=== PATIENT | female | born 1955 | race Caucasian/White ===

== ENCOUNTER → 2017-10-28 | Outpatient (CLI) | payer OTHER ==
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
--- NOTE | 2017-10-28 15:21 | XR ---
EXAMINATION TYPE: XR knee complete RT DATE OF EXAM: 10/28/2017 CLINICAL HISTORY: pain TECHNIQUE: Three views of the right knee are obtained. COMPARISON: None. FINDINGS: There is no acute fracture/dislocation. The tri-compartment joint spaces appear within no rmal limits. Superior patellar spurring. The overlying soft tissue appears unremarkable. IMPRESSION: There is no acute fracture or dislocation.ICD 10 NO FRACTURE, INITIAL EVALUATION
--- NOTE | 2017-10-28 15:21 | XR ---
EXAMINATION TYPE: XR shoulder complete LT DATE OF EXAM: 10/28/2017 CLINICAL HISTORY: pain COMPARISON: NONE TECHNIQUE: Three views of the left shoulder are obtained. FINDINGS: There is no acute fracture/dislocation evident. The acromioclavicular and glenohumeral erin int spaces appear mildly narrowed.. The visualized ribs are intact and unremarkable. IMPRESSION: 1. There is no acute fracture or dislocation. ICD 10 NO FRACTURE, INITIAL EVALUATION
--- NOTE | 2017-10-28 15:22 | XR ---
EXAMINATION TYPE: XR thoracic spine complete DATE OF EXAM: 10/28/2017 CLINICAL HISTORY: pain TECHNIQUE: Frontal, lateral, and swimmer's view of thoracic spine are obtained. COMPARISON: None. FINDINGS: Thoracic spine show satisfactory alignment without evidence of acute fracture or dislocatio n. Vertebral body heights are preserved. Mild degenerative disc space narrowing and spondylosis. V isualized ribs are unremarkable. IMPRESSION: No acute fracture or dislocation is seen in the thoracic spine. ICD 10 NO FRACTURE, INIT IAL EVALUATION
--- NOTE | 2017-10-28 15:23 | XR ---
EXAMINATION TYPE: XR pelvis AP view DATE OF EXAM: 10/28/2017 CLINICAL HISTORY: pain TECHNIQUE: Single view the pelvis is submitted. FINDINGS: No evidence for fracture, dislocation or bony lesion. Joint spaces are well-preserved. S I joints appear symmetric. IMPRESSION: 1. No acute fracture or dislocation seen. ICD 10 NO FRACTURE, INITIAL EVALUATION
--- NOTE | 2017-10-28 15:28 | XR ---
EXAMINATION TYPE: XR cervical spine comp DATE OF EXAM: 10/28/2017 CLINICAL HISTORY: pain COMPARISON: NONE TECHNIQUE: Frontal, lateral, oblique, swimmers, and open mouth view of the cervical spine are obtaine d. FINDINGS: The cervical spine is visualized in its entirety from C1 thru the top of T1 level. It is s atisfactory in alignment without evidence of acute fracture or dislocation. The pre-vertebral soft t issue appears within normal limits. Moderate degenerative changes and spondylosis. The C1-C2 articula tion is unremarkable on the open mouth view. The oblique images are within normal limits. IMPRESSION: No acute fracture or dislocation is seen in the cervical spine.ICD 10 NO FRACTURE, INITI AL EVALUATION
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
== END ==
LOC: RADCTMAIN 14:11
PROVIDERS: ATTEND Emergency Medicine
DX: S13.4XXA Sprain of ligaments of cervical spine, initial encounter (principal); S43.402A Unspecified sprain of left shoulder joint, initial encounter; S43.401A Unspecified sprain of right shoulder joint, initial encounter; S23.3XXA Sprain of ligaments of thoracic spine, initial encounter; S33.5XXA Sprain of ligaments of lumbar spine, initial encounter; S80.01XA Contusion of right knee, initial encounter; S80.02XA Contusion of left knee, initial encounter; Y04.8XXA Assault by other bodily force, initial encounter; Y99.0 Civilian activity done for income or pay
CPT/HCPCS: 72050; 72072; 72100; 72125; 72170

== ENCOUNTER → 2020-09-06 | Outpatient (CLI) | payer BC ==
--- NOTE | 2020-09-06 16:29 | XR ---
Thoracic spine HISTORY: Mid back pain 3 views of the thoracic spine, correlation prior exam 10/28/2017 There is multilevel spondylosis. Some loss of disc height present at intervertebral levels of the low er thoracic spine. Thoracic vertebral bodies show preserved height and bone mineralization is mildly reduced. There is a gentle spinal curvature. IMPRESSION: Degenerative disc disease.
--- NOTE | 2020-09-06 17:08 | XR ---
EXAMINATION TYPE: XR chest 2V DATE OF EXAM: 09/06/2020 COMPARISON: Prior chest x-ray 08/19/2014 HISTORY: Mid back pain, M 54.6, B 94.8, J 18.9 TECHNIQUE: Frontal and lateral views of the chest are obtained. FINDINGS: There is no focal air space opacity, pleural effusion, or pneumothorax seen. The cardiac silhouette size is within normal limits. There are prominent lung volumes. There is thoracic spondyl osis, there is a spinal curvature. The osseous structures are intact. Surgical clips present in the u pper abdomen. IMPRESSION: No acute cardiopulmonary process.
== END | disposition home or self-care (01) ==
LOC: RADXRMAIN 15:46
PROVIDERS: ATTEND Family Medicine
DX: M51.34 Other intervertebral disc degeneration, thoracic region (principal); J18.9 Pneumonia, unspecified organism; B94.8 Sequelae of other specified infectious and parasitic diseases
CPT/HCPCS: 71046; 72072

== ENCOUNTER → 2020-09-06 | Outpatient (CLI) | payer BC ==
[2020-09-06 16:43] LABS: Basophils # (A) 0.1 k/uL (0-0.2); Basophils % (A) 1 %; Eosinophils # (A) 0.2 k/uL (0-0.7); Eosinophils % (A) 2 %; HCT 41.2 % (34.0-46.0); HGB 13.8 gm/dL (11.4-16.0); Lymphocytes # (A) 3.2 k/uL (1.0-4.8); Lymphocytes % (A) 31 %; MCH 28.7 pg (25.0-35.0); MCHC 33.6 g/dL (31.0-37.0); MCV 85.4 fL (80.0-100.0); Mean Platelet Volume 7.1; Monocytes # (A) 0.6 k/uL (0-1.0); Monocytes % (A) 6 %; Neutrophils % (A) 58 %; Platelet Count 304 k/uL (150-450); RBC 4.82 m/uL (3.80-5.40); RDW 13.4 % (11.5-15.5); WBC 10.3 k/uL (3.8-10.6)
[2020-09-07 01:34] LABS: African American GFR (CKD) 78.3 (60.0-200.0); Albumin 5.2 g/dL (3.80-4.90); Anion Gap 11.5 mmol/L (4.00-12.00); BUN/Creat Ratio 16.67 Ratio (12.00-20.00); Calcium 9.8 mg/dL (8.7-10.3); Carbon Dioxide 22.5 mmol/L (21.6-31.8); Globulin 2.6 g/dL (1.6-3.3); Magnesium 1.6 mg/dL (1.5-2.4); Non-African American GFR(CKD) 67.6 (60.0-200.0); Potassium 3.9 mmol/L (3.5-5.5); Total Bilirubin 0.9 mg/dL (0.3-1.2); Total Protein 7.8 g/dL (6.2-8.2)
[2020-09-07 04:06] LABS: Hemoglobin A1C 5.7 % (4.0-6.0)
== END | disposition home or self-care (01) ==
LOC: LABWHC1 16:09
PROVIDERS: ATTEND Family Medicine
DX: E11.9 Type 2 diabetes mellitus without complications (principal); B94.8 Sequelae of other specified infectious and parasitic diseases
CPT/HCPCS: 36415; 80053; 82306; 83036; 83735; 84443; 85025

== ENCOUNTER → 2022-02-27 | Outpatient (CLI) | payer MEDICARE ==
--- NOTE | 2022-02-27 09:34 | BD ---
EXAMINATION TYPE: Axial Bone Density DATE OF EXAM: 02/27/2022 COMPARISON: NONE CLINICAL HISTORY: 67 year old Female. ICD-10 CODE: Z78.0 MENOPAUSAL W/O HRT Height: 65 Weight: 178.4 FRAX RISK QUESTIONS: Alcohol (3 or more units per day): no Family History (Parent hip fracture): no Glucocorticoids (More than 3mos): no (Ex: prednisone, prednisolone, methylprednisolone, dexamethasone, and hydrocortisone). History of Fracture in Adulthood: yes Secondary Osteoporosis: 1. Type 1 Diabetes: no 2. Hyperthyroidism: no 3. Menopause before 45: yes 4. Malnutrition: no 5. Chronic liver disease: no Rheumatoid Arthritis: no Current Tobacco Use: no RISK FACTORS HISTORY OF: History of Wrist Fracture: left When: as a child Surgery to Spine/Hip(right/left)/Wrist (right/left): no Family History of Osteoporosis: no Active: no Diet low in dairy products/other sources of calcium: yes Postmenopausal woman: yes Lost more than 2 inches in height since high school: no MEDICATIONS: Additional History: EXAM MEASUREMENTS: Bone mineral densitometry was performed using the [employer] System. Bone mineral density as measured about the Lumbar spine is: ----- L1-L4(G/cm2): 0.998 T Score Values are as follows: ----- L1: -2.6 ----- L2: -1.3 ----- L3: -0.9 ----- L4: -1.6 ----- L1-L4: -1.5 Bone mineral density has: increased 8.7 % since study of: 04.14.2005 Bone mineral density about the R hip (g/cm2): 0.813 Bone mineral density about the L hip (g/cm2): 0.831 T Score values are as follows: -----R Neck: -1.6 -----L Neck: -1.5 -----R Total: -1.3 -----L Total: -1.4 Bone mineral density has: decreased -19.7 % since study of: 04.14.2005 FRAX%s: The graph provided illustrates a 15.2% chance for a major osteoporotic fx and a 1.8% chance f or the hips probability for fx in 10 years time. IMPRESSION: Osteopenia (T Score between -2.5 and -1). There is slightly increased risk of fracture and the patient may be considered for treatment. Re-Screen 2-5 years. NOTE: T-SCORE=SD OF THE YOUNG ADULT MEAN.
--- NOTE | 2022-03-02 08:45 | MM ---
Reason for Exam: Screening (asymptomatic). Last mammogram was performed 16 year(s) and 10 month(s) ago. Patient History: Menarche at age 12. First Full-Term at age 23. Left ovary removed at age 30. Right ovary removed at age 30. Hysterectomy at age 30. Postmenopausal. Patient has history of breast feeding. Risk Values: Zelda 5 year model risk: 1.6%. NCI Lifetime model risk: 5.9%. Prior Study Comparison: 04/02/1998 Bilateral Screening Mammogram, [place]. 04/17/2005 Bilateral Screening Mammogram, [facility]. 04/23/2005 Right Diagnostic Mammogram, [facility]. Tissue Density: There are scattered fibroglandular densities. Findings: Analyzed By CAD. There are grouped benign-appearing calcifications in the left breast. No suspicious groups of microcalcifications, spiculated or lobular masses, architectural distortion or other secondary signs of malignancy are mammographically apparent. Overall Assessment: Benign, BI-RAD 2 Management: Screening Mammogram of both breasts in 1 year. A negative mammogram report should not preclude additional follow up of suspicious palpable abnormalities. Patient should continue monthly self breast exam. A clinical breast exam by your physician is recommended on an annual basis and results should be correlated with mammographic findings. Electronically signed and approved by: Estuardo Sagastume D.O. Radiologis
== END | disposition home or self-care (01) ==
LOC: RADMAMWWP 07:44
PROVIDERS: ATTEND Family Medicine
DX: Z12.31 Encounter for screening mammogram for malignant neoplasm of breast (principal); M81.0 Age-related osteoporosis without current pathological fracture; Z78.0 Asymptomatic menopausal state
CPT/HCPCS: 77063; 77067; 77080

== ENCOUNTER 2022-05-21 07:12 | Day surgery (SDC) | payer MEDICARE ==
[2022-05-19 11:48] VITALS: BMI 30.7
[~2022-05-21 07:12] MED LIST: LACTATED RINGERS 1,000 ML IV SCH
[2022-05-21 07:47] VITALS: RESP 16; TEMP 97.6
[2022-05-21] MEDS ORDERED: LACTATED RINGERS 1,000 ML IV ONE (07:50)
[2022-05-21 07:54] LABS: Glucose,Whole Blood 131 mg/dL (70-110)
[2022-05-21] MEDS ORDERED: PROPOFOL 10 MG/ML 20 ML VIAL IV ONE (08:30)
--- NOTE | 2022-05-21 08:32 | P.GSHP ---
History of Present Illness H&P Date: 05/21/22 Chief Complaint: Diarrhea This is a 67-year-old female who presents today for colonoscopy. Patient's had complaints of diarrhea. Past Medical History Past Medical History: Diabetes Mellitus, Hyperlipidemia, Hypertension, Osteoarthritis (OA) Additional Past Medical History / Comment(s): HX SHINGLES,MIGRAINES, HAD COVID- JUL 2021-HAS HAD DIGESTIVE ISSUES SINCE THEN. History of Any Multi-Drug Resistant Organisms: MRSA Date of last positivie culture/infection: 12/01/15 MDRO Source:: NASAL COLONIZATION Past Surgical History: Appendectomy, Section, Cholecystectomy, Hysterectomy, Orthopedic Surgery, Tonsillectomy Additional Past Surgical History / Comment(s): RT THUMB TRIGGER FINGER, LEFT CARPAL TUNNEL, EGD, MAJO, COLONOSCOPY Past Anesthesia/Blood Transfusion Reactions: No Reported Reaction Smoking Status: Former smoker - Past Family History Mother Family Medical History: Cancer Additional Family Medical History / Comment(s): COLON CANCER Brother(s) Family Medical History: Cancer Medications and Allergies Home Medications Medication Instructions Recorded Confirmed Type Simvastatin [Zocor] 40 mg PO HS 08/19/14 05/21/22 History Linagliptin [Tradjenta] 5 mg PO DAILY 05/19/22 05/21/22 History Nebivolol HCl [Bystolic] 10 mg PO DAILY 05/19/22 05/21/22 History Allergies Allergy/AdvReac Type Severity Reaction Status Date / Time iodine Allergy Anaphylaxis Verified 05/21/22 07:44 shellfish derived [Shellfish] Allergy Anaphylaxis Verified 05/21/22 07:44 Surgical - Exam Vital Signs Temp Pulse Resp BP Pulse Ox 97.6 F 54 L 16 155/67 97 05/21/22 07:45 05/21/22 07:45 05/21/22 07:45 05/21/22 07:45 05/21/22 07:45 - General well developed, well nourished, no distress - Eyes PERRL - ENT normal pinna - Neck no masses - Respiratory normal expansion - Cardiovascular Rhythm: regular - Abdomen Abdomen: soft, non tender Results - Labs Abnormal Lab Results - Last 24 Hours (Table) 05/21/22 Range/Units 07:53 POC Glucose (mg/dL) 131 H (70-110) mg/dL Assessment and Plan Assessment: Diarrhea. We'll perform colonoscopy
--- NOTE | 2022-05-21 08:48 | P.OP ---
Date of Procedure: 05/21/22 Preoperative Diagnosis: Diarrhea Postoperative Diagnosis: Internal and external hemorrhoids Rectal biopsy pathology pending Procedure(s) Performed: Colonoscopy Anesthesia: MAC Surgeon: Liu Person Pathology: other (Rectal biopsy) Condition: stable Disposition: PACU Description of Procedure: Patient's placed on the endoscopy table in the lateral position. She received IV sedation. Digital rectal exam performed which revealed internal and external hemorrhoids. The flexible colonoscope was then placed patient anus and passed throughout the entire colon. The ileocecal valve was visualized. Cecum, ascending and transverse colon appeared normal. The descending and sigmoid colon appeared normal. Scope was then brought back the rectum and this appeared normal without evidence of inflammation. Due to the patient's symptoms of diarrhea a random rectal biopsies performed with the cold forcep. Scope was withdrawn through the anus and internal and external hemorrhoids are noted.
[2022-05-21 09:12] VITALS: BP 103/67; PULSE 50
== END 2022-05-21 09:24 | disposition home or self-care (01) ==
LOC: ORWHC2ENDO 07:12
PROVIDERS: ATTEND Surgery
DX: R19.7 Diarrhea, unspecified (principal); E11.9 Type 2 diabetes mellitus without complications; E78.5 Hyperlipidemia, unspecified; I10 Essential (primary) hypertension; M19.90 Unspecified osteoarthritis, unspecified site; K64.4 Residual hemorrhoidal skin tags; K64.8 Other hemorrhoids; Z79.84 Long term (current) use of oral hypoglycemic drugs; Z86.16 Personal history of COVID-19; Z87.891 Personal history of nicotine dependence; Z90.49 Acquired absence of other specified parts of digestive tract
CPT/HCPCS: 88305; 45380; J2704

== ENCOUNTER → 2022-11-27 | Outpatient (CLI) | payer MEDICARE ==
--- NOTE | 2022-11-27 14:32 | FL ---
EXAMINATION TYPE: FL barium swallow DATE OF EXAM: 11/27/2022 COMPARISON: None HISTORY: History of Elio fundoplasty, gastroesophageal reflux TECHNIQUE: Single contrast technique esophagram FINDINGS: A few tertiary contractions were evident in the horizontal drinking position. There is mini campos incomplete stripping of the esophageal bolus. Small hiatal hernia is evident. IMPRESSION: 1. Mild presbyesophagus. 2. Some minimal gastroesophageal reflux may have been elicited during the exam. 3. There is a small hiatal hernia.
== END | disposition home or self-care (01) ==
LOC: RADUSWWP 09:00
PROVIDERS: ATTEND Surgery
DX: K21.9 Gastro-esophageal reflux disease without esophagitis (principal); K22.89 Other specified disease of esophagus; K44.9 Diaphragmatic hernia without obstruction or gangrene
CPT/HCPCS: 74220

== ENCOUNTER 2022-11-30 10:53 | Day surgery (SDC) | payer MEDICARE ==
[~2022-11-30 10:53] MED LIST changes: +LIDOCAINE 1% (10MG/ML) FOR IV START INTRADERMA PRN
[2022-11-30 11:34] LABS: Glucose,Whole Blood 138 mg/dL (70-110)
[2022-11-30 11:36] VITALS: TEMP 96.7
[2022-11-30] MEDS ORDERED: LACTATED RINGERS 900 ML IV ONE (11:36)
[2022-11-30] MEDS ORDERED: PROPOFOL 10 MG/ML 20 ML VIAL IV ONE (11:38)
--- NOTE | 2022-11-30 11:47 | P.OP ---
Date of Procedure: 11/30/22 Preoperative Diagnosis: GERD Postoperative Diagnosis: Antral gastritis Small hiatal hernia No significant esophagitis Procedure(s) Performed: EGD Anesthesia: MAC Surgeon: Liu Person Pathology: other (Antrum) Condition: stable Disposition: PACU Description of Procedure: Patient's placed on the endoscopy table in the lateral position. She received IV sedation. The gastroscope placed oropharynx passed in the esophagus and stomach. Scope then placed through the pylorus. The first and second portion of the duodenum appeared normal. Scope was then brought back the antrum this was mildly inflamed. A biopsies performed. Scope was then retroflexed the remainder the stomach appeared normal. There was a very small hiatal hernia noted. The GE junction was at 39 7 is. The distal esophagus appeared normal. The proximal esophagus appeared normal. Scope withdrawn for patient.
[2022-11-30 11:54] VITALS: RESP 16
[2022-11-30 12:05] VITALS: BP 129/71; PULSE 55
== END 2022-11-30 12:31 | disposition home or self-care (01) ==
LOC: ORWHC2ENDO 10:53
PROVIDERS: ATTEND Surgery
DX: K29.50 Unspecified chronic gastritis without bleeding (principal); K21.9 Gastro-esophageal reflux disease without esophagitis; K44.9 Diaphragmatic hernia without obstruction or gangrene; I10 Essential (primary) hypertension; E78.5 Hyperlipidemia, unspecified; G43.909 Migraine, unspecified, not intractable, without status migrainosus; M19.90 Unspecified osteoarthritis, unspecified site; F32.A Depression, unspecified; E11.9 Type 2 diabetes mellitus without complications; Z79.84 Long term (current) use of oral hypoglycemic drugs; Z79.899 Other long term (current) drug therapy
CPT/HCPCS: 88305; 43239; J2704